=== PATIENT | female | born 1980 | race Two or more races ===

== ENCOUNTER 2021-08-12 11:18 | Emergency (ER) | payer SELFPAY ==
[2021-08-12] MEDS ORDERED: Aluminum Hydroxide/Magnesium Hydroxide Susp 30 ML Cup PO STA (11:50)
--- NOTE | 2021-08-12 11:50 | EDM.PDOC ---
ED HPI GENERAL MEDICAL PROBLEM - General Chief Complaint: Cardiovascular Problem Stated Complaint: HEART BEATING FAST Time Seen by Provider: 08/12/21 11:43 Source of Information: Reports: Patient, RN History Limitations: Reports: Other (incomplete records, Kazakh not her first language) - History of Present Illness INITIAL COMMENTS - FREE TEXT/NARRATIVE: 41 yo female presents with a complaint of intermittent tachycardia that is not new. She has been seen for this in her clinic and a full work up was completed without any pathology found. There has not been syncope or chest pain associated with these spells. She feels anxious at times. Has another episode before arrival that is resolved upon arrival. No phx of CAD. Does report intermittent substernal burning and at times mild light-headedness. Was given metoprolol to use prn sustained tachycardia that she has not taken yet. Onset: Unknown/Unsure Duration: Week(s):, Intermittent, Waxing/Waning Location: Reports: Head, Chest Quality: Reports: Burning (mild, substernal) Severity: Mild Improves with: Reports: Other (unsure) Worsens with: Reports: Other (unsure) Context: Reports: Other (See HPI) Associated Symptoms: Reports: Chest Pain (substernal burning, not exertion related), Other (light-headed at times). Denies: Shortness of Breath Treatments [employer]: Reports: Other (see below) (none) - Related Data Allergies Allergy/AdvReac Type Severity Reaction Status Date / Time No Known Allergies Allergy Verified 08/12/21 11:43 Home Meds: Home Meds Levothyroxine 75 mcg PO DAILY 08/12/21 [History] ED ROS GENERAL - Review of Systems Review Of Systems: See Below Constitutional: Reports: No Symptoms HEENT: Reports: No Symptoms Respiratory: Reports: No Symptoms Cardiovascular: Reports: Chest Pain (substernal burning), Lightheadedness (intermittent). Denies: Dyspnea on Exertion Endocrine: Reports: No Symptoms GI/Abdominal: Reports: No Symptoms : Reports: No Symptoms Musculoskeletal: Reports: No Symptoms Skin: Reports: No Symptoms Neurological: Reports: No Symptoms ED EXAM, GENERAL - Physical Exam Exam: See Below Exam Limited By: No Limitations General Appearance: Alert, WD/WN, No Apparent Distress Eye Exam: Bilateral Eye: EOMI, PERRL Ears: Normal External Exam, Normal Canal, Hearing Grossly Normal Ear Exam: Bilateral Ear: Auricle Normal, Canal Normal Nose: Normal Inspection, No Blood Throat/Mouth: Normal Inspection, Normal Lips, Normal Oropharynx, Normal Voice Head: Atraumatic, Normocephalic Neck: Normal Inspection Respiratory/Chest: No Respiratory Distress, Lungs Clear, Normal Breath Sounds, No Accessory Muscle Use Cardiovascular: Regular Rate, Rhythm, No Edema GI/Abdominal: Soft, Non-Tender Back Exam: Normal Inspection. No: CVA Tenderness (R), CVA Tenderness (L) Extremities: Normal Inspection, Normal Range of Motion, Non-Tender, No Pedal Edema. No: Pedal Edema, Wesley's Sign Neurological: Alert, Oriented, CN II-XII Intact, Normal Cognition, No Motor/Sensory Deficits Psychiatric: Normal Affect, Normal Mood Skin Exam: Warm, Dry, Intact, Normal Color, No Rash Course - Orders/Labs/Meds Orders: Active Orders 24 hr Category Date Time Status Cardiac Monitoring [RC] .As Directed Care 08/12/21 11:43 Ordered - Re-Assessments/Exams Free Text/Narrative Re-Assessment/Exam: 08/12/21 12:02 declined our offer of Ativan and Maalox. Departure - Departure Time of Disposition: 12:00 Disposition: Home, Self-Care 01 Condition: Good Clinical Impression: Mild anxiety GERD (gastroesophageal reflux disease) Qualifiers: Esophagitis presence: without esophagitis Qualified Code(s): K21.9 - Gastro- esophageal reflux disease without esophagitis Instructions: Food Choices for Gastroesophageal Reflux Disease, Adult, [id number], Managing Anxiety, Adult Forms: ED Department Discharge Additional Instructions: I feel you may have some gastroesophageal reflux causing your substernal burning. I would recommend taking Gaviscon 30 ml after meals and at bedtime and as needed to control your heartburn symptoms. This reflux is also causing you some anxiety which in turn leads to breathing too fast and deep which causes light-headedness. Avoid certain foods that make reflux worse like anything carbonated or containin g caffeine. Avoid eating after 6 pm to allow time for your stomach to empty before going to bed. Follow up with your doctor as needed. I don't think you need to worry about your heart at this time. - My Orders Last 24 Hours: My Active Orders 08/12/21 11:43 Cardiac Monitoring [RC] .As Directed - Assessment/Plan Last 24 Hours: My Active Orders 08/12/21 11:43 Cardiac Monitoring [RC] .As Directed
[2021-08-12] MEDS ORDERED: LORazepam 0.5 MG Tab PO ONE (11:51)
== END 2021-08-12 12:15 | disposition home or self-care (01) ==
LOC: FB.ED 11:18
DX: K21.9 Gastro-esophageal reflux disease without esophagitis (principal); F41.9 Anxiety disorder, unspecified
CPT/HCPCS: 99283